=== PATIENT | male | born 1995 | race Two or more races ===

== ENCOUNTER 2020-10-29 23:38 | Emergency (ER) | payer MEDICAID, OTHER ==
[~2020-10-29] VITALS: Ht 177.8 cm; Wt 112.9 kg
[2020-10-30 01:00] VITALS: BP 137/92
[2020-10-30 01:02] LABS: Basophils # (auto) 0.1 10 ^3/uL (0-0.2); Basophils % (auto) 0.7 % (0.0-2.0); Eosinophils # (auto) 0.1 10 ^3/uL (0-0.8); Eosinophils % (auto) 1.1 % (0.0-7.0); Hematocrit 43.7 % (41.0-53.0); Hemoglobin 15.3 g/dL (13.5-17.5); Lymphocytes # (auto) 2.7 10 ^3/uL (0.4-5.4); Lymphocytes % (auto) 29.2 % (10.0-50.0); Mean Corpuscular Volume 85.6 fL (80.0-100.0); Monocytes # (auto) 0.8 10 ^3/uL (0-1.3); Monocytes % (auto) 8.5 % (0.0-12.0); Neutrophils # (auto) 5.5 10 ^3/uL (1.6-8.6); Neutrophils % (auto) 60.5 % (37.0-80.0); Nucleated Red Blood Cells % 0.2 %; Platelet Count (auto) 209 10^3/uL (140-450); Red Cell Distribution Width 13.4 % (11.8-14.3); White Blood Cell 9.1 10^3/uL (4.4-10.8)
[2020-10-30 01:18] LABS: Alanine Aminotransferase 62 U/L (16-61); Albumin 3.9 g/dL (3.4-5.0); Anion Gap 9 (5-15); Aspartate Aminotransferase 25 U/L (15-37); BUN/Creatinine Ratio 14.5; Blood Urea Nitrogen 12 mg/dL (7-18); Calcium 8.6 mg/dL (8.5-10.1); Carbon Dioxide 23 mmol/L (21-32); Chloride 106 mmol/L (98-107); GFR African American 148 mL/min; GFR Non-African American 122 mL/min; Glucose 101 mg/dL (74-106); Magnesium 2.1 mg/dL (1.6-2.6); Potassium 3.8 mmol/L (3.5-5.1); Sodium 138 mmol/L (136-145)
[2020-10-30 01:23] LABS: Alkaline Phosphatase 66 U/L (45-117); Bilirubin, Total 0.4 mg/dL (0.2-1.0); Total Protein 7.5 g/dL (6.4-8.2)
== END 2020-10-30 04:41 | disposition home or self-care (01) ==
LOC: ER 23:38
DX: N43.3 Hydrocele, unspecified (principal); L72.0 Epidermal cyst; R00.2 Palpitations; F12.10 Cannabis abuse, uncomplicated; F15.10 Other stimulant abuse, uncomplicated
CPT/HCPCS: 36415; 71045; 76870; 80053; 83735; 84443; 84484; 85025; 85379; 93005